=== PATIENT | female | born 2000 | race Caucasian/White ===

== ENCOUNTER 2025-06-03 12:07 | Emergency (ER) | payer OTHER ==
--- NOTE | 2025-06-03 12:13 | ERPHSYRPT ---
- History of Present Illness Time Seen by Provider: 06/03/25 12:12 Historian: patient, family Exam Limitations: no limitations Physician History: This is a 24-year-old white female patient arrives by private vehicle and who receives her primary care by nurse practitioner marco and Dr. Vick out of [facility]. Patient was seen yesterday and diagnosed with constipation. However, the patient is concerned because at times the pain is very severe. 3 days ago she had nausea and vomiting symptoms. Patient has never had prior abdominal surgeries. Patient denies chest pain. Patient denies shortness of breath. Patient does have a history of depression and anxiety. Timing/Duration: day(s) (Worst symptoms in the last few days), worse, other (Pain intermittently for a month) Activities at Onset: none Quality: aching Abdominal Pain Onset Location: RLQ, LLQ, suprapubic Pain Radiation: no radiation Severity of Pain-Max: mild (To moderate) Severity of Pain-Current: mild Modifying Factors: Improves With: nothing Associated Symptoms: nausea, vomiting, No chest pain, No shortness of breath Previous symptoms: same symptoms as today, recently seen, recently treated Allergies/Adverse Reactions: No Known Drug Allergies Allergy (Unverified 06/03/25 12:12) Home Medications: Cholecalciferol (Vitamin D3) [Vitamin D3] 25 mcg PO DAILY 06/03/25 [History] Cyanocobalamin (Vitamin B-12) [Vitamin B12] 1,000 mcg PO DAILY 06/03/25 [History] Escitalopram Oxalate [Lexapro] 10 mg PO DAILY 06/03/25 [History] Noreth A-Et Estra/Fe Fumarate [Lo Loestrin Fe 1-10 Tablet] 1 tablet PO DAILY 06/03/25 [History] Sucralfate 1 gm [Carafate 1 GM] 1 g PO ACHS 06/03/25 [History] Travel Risk - International Travel Have you traveled outside of the country in past 3 weeks: No - Emerging Infectious Disease Are you exhibiting symptoms associated with any current EIDs: No - Review of Systems Constitutional: No Symptoms Eyes: No Symptoms Ears, Nose, & Throat: No Symptoms Respiratory: No Symptoms Cardiac: No Symptoms Abdominal/Gastrointestinal: No Symptoms, Abdominal Pain, Nausea, Vomiting, Constipation Genitourinary Symptoms: No Symptoms Musculoskeletal: No Symptoms Skin: No Symptoms Neurological: No Symptoms Psychological: No Symptoms Endocrine: No Symptoms Hematologic/Lymphatic: No Symptoms Immunological/Allergic: No Symptoms All Other Systems: Reviewed and Negative - Past Medical History Pertinent Past Medical History: Yes - Nursing Vital Signs Nursing Vital Signs: Initial Vital Signs Temperature 96.9 F 06/03/25 12:17 Pulse Rate 75 06/03/25 12:17 Respiratory Rate 18 06/03/25 12:17 Blood Pressure 114/77 06/03/25 12:17 O2 Sat by Pulse Oximetry 99 06/03/25 12:17 Pain Scale Pain Intensity 9 - Physical Exam General Appearance: no apparent distress, alert, anxiety Eye Exam: PERRL/EOMI, eyes nml inspection Ears, Nose, Throat Exam: normal ENT inspection, moist mucous membranes Neck Exam: normal inspection, non-tender, supple, full range of motion Respiratory Exam: normal breath sounds, lungs clear, airway intact, No chest tenderness, No respiratory distress Cardiovascular Exam: regular rate/rhythm, normal heart sounds, normal peripheral pulses Gastrointestinal/Abdomen Exam: soft, normal bowel sounds, tenderness (To palpation bilateral lower quadrants and suprapubic region), guarding (To palpation bilateral lower quadrants and suprapubic region), No rebound Pelvic Exam: not done Rectal Exam: not done Back Exam: normal inspection, normal range of motion, No CVA tenderness, No vertebral tenderness Extremity Exam: normal inspection, normal range of motion, pelvis stable Neurologic Exam: alert, oriented x 3, cooperative, pickle maker II-XII nml as tested, normal mood/affect, nml cerebellar function, nml station & gait, sensation nml Skin Exam: normal color, warm, dry Lymphatic Exam: No adenopathy SpO2 Interpretation: normal O2 Delivery: Room Air - Course Nursing assessment & vital signs reviewed: Yes Ordered Tests: Active Orders 24 hr Category Date Time Status IV Insertion STAT Care 06/03/25 12:31 Active ABDOMEN AND PELVIS W/0 CONTRAS [CT] Stat Exams 06/03/25 12:33 Completed AMYLASE Stat Lab 06/03/25 12:49 Completed CBC W DIFF Stat Lab 06/03/25 12:49 Completed CMP Stat Lab 06/03/25 12:49 Completed CULTURE,URINE Stat Lab 06/03/25 12:51 Received HCG QUALITATIVE, SERUM Stat Lab 06/03/25 12:49 Completed LIPASE Stat Lab 06/03/25 12:49 Completed UA W/RFX UR CULTURE Stat Lab 06/03/25 12:51 Completed Medication Summary Discontinued Medications Generic Name Dose Route Start Last Admin Trade Name Maggie PRN Reason Stop Dose Admin Acetaminophen 650 mg 06/03/25 14:26 06/03/25 14:34 Acetaminophen 325 Mg Tablet PO 06/03/25 14:27 650 mg STAT ONE Administration Acetaminophen Confirm 06/03/25 14:33 Acetaminophen 325 Mg Tablet Administered 06/03/25 14:34 Dose 650 mg .ROUTE .STK-MED ONE Cephalexin HCl 500 mg 06/03/25 15:03 06/03/25 15:12 Cephalexin Mh500 Mg Capsule PO 06/03/25 15:04 500 mg STAT ONE Administration Cephalexin HCl Confirm 06/03/25 15:11 Cephalexin Mh500 Mg Capsule Administered 06/03/25 15:12 Dose 500 mg .ROUTE .STK-MED ONE Lab/Rad Data: Laboratory Result Diagrams 06/03/25 12:49 06/03/25 12:49 Laboratory Results 06/03/25 06/03/25 06/03/25 Range/Units 12:51 12:49 12:49 WBC (3.98-10.04) x10^3/uL RBC (3.93-5.22) x10^6/uL Hgb (11.2-15.7) g/dL Hct (34.1-44.9) % MCV (79.4-94.8) fL MCH (25.6-32.2) pg MCHC (32.2-35.5) g/dL RDW (11.7-14.4) % Plt Count (182-369) x10^3/uL MPV (9.4-12.3) fL Gran % (34.0-71.1) % Immature Gran % (Auto) (0.001-0.429) % Nucleat RBC Rel Count (0.00-0.2) % Eos # (Auto) (0.04-0.36) x10^3/uL Immature Gran # (Auto) (0.001-0.031) x10^3u/L Absolute Lymphs (auto) (1.18-3.74) x10^3/uL Absolute Monos (auto) (0.24-0.86) x10^3/uL Absolute Nucleated RBC (0.00-0.012) x10^3u/L Lymphocytes % (19.3-51.7) % Monocytes % (4.7-12.5) % Eosinophils % (0.7-5.8) % Basophils % (0.1-1.2) % Absolute Granulocytes (1.56-6.13) x10^3/uL Basophils # (0.01-0.08) x10^3/uL Sodium 140 (135-145) mmol/L Potassium 4.2 (3.5-5.1) mmol/L Chloride 106 (98-107) mmol/L Carbon Dioxide 26 (22-30) mmol/L Anion Gap 12.4 (5-15) MEQ/L BUN 11 (7-17) mg/dL Creatinine 0.80 (0.52-1.04) mg/dL Estimated GFR 106.8 ML/MIN Glucose 92 (74-106) mg/dL Calcium 9.3 (8.4-10.2) mg/dL Total Bilirubin 0.30 (0.2-1.3) mg/dL AST 27 (14-36) U/L ALT 15 (0-35) U/L Alkaline Phosphatase 90 (38-126) U/L Serum Total Protein 8.2 (6.3-8.2) g/dL Albumin 4.5 (3.5-5.0) g/dL Amylase 61 (30-110) U/L Lipase 92 (23-300) U/L Serum HCG, Qual NEGATIVE (NEGATIVE) Urine Color Yellow (Yellow) Urine Appearance Clear (Clear) Urine pH 7.5 (4.6-8.0) Ur Specific [place] 1.015 (1.005-1.030) Urine Protein Negative (Negative) Urine Glucose (UA) Negative (Negative) mg/dL Urine Ketones Negative (Negative) Urine Blood Large A (Negative) Urine Nitrite Negative (Negative) Urine Bilirubin Negative (Negative) Urine Urobilinogen 0.2 (0.2) mg/dL Ur Leukocyte Esterase Trace A (Negative) U Hyaline Cast (Auto) NONE SEEN (0-2) /LPF Urine Microscopic RBC 21-50 A (0-5) /HPF Urine Microscopic WBC 6-10 A (0-5) /HPF Ur Epithelial Cells Rare (None Seen) /HPF Urine Bacteria None Seen (None Seen) /HPF Urine Culture Reflexed YES (NO) 06/03/25 Range/Units 12:49 WBC 7.7 (3.98-10.04) x10^3/uL RBC 4.65 (3.93-5.22) x10^6/uL Hgb 12.9 (11.2-15.7) g/dL Hct 40.3 (34.1-44.9) % MCV 86.7 (79.4-94.8) fL MCH 27.7 (25.6-32.2) pg MCHC 32.0 L (32.2-35.5) g/dL RDW 12.4 (11.7-14.4) % Plt Count 324 (182-369) x10^3/uL MPV 11.9 (9.4-12.3) fL Gran % 55.9 (34.0-71.1) % Immature Gran % (Auto) 0.4 (0.001-0.429) % Nucleat RBC Rel Count 0.0 (0.00-0.2) % Eos # (Auto) 0.49 H (0.04-0.36) x10^3/uL Immature Gran # (Auto) 0.03 (0.001-0.031) x10^3u/L Absolute Lymphs (auto) 2.23 (1.18-3.74) x10^3/uL Absolute Monos (auto) 0.59 (0.24-0.86) x10^3/uL Absolute Nucleated RBC 0.00 (0.00-0.012) x10^3u/L Lymphocytes % 29.1 (19.3-51.7) % Monocytes % 7.7 (4.7-12.5) % Eosinophils % 6.4 H (0.7-5.8) % Basophils % 0.5 (0.1-1.2) % Absolute Granulocytes 4.28 (1.56-6.13) x10^3/uL Basophils # 0.04 (0.01-0.08) x10^3/uL Sodium (135-145) mmol/L Potassium (3.5-5.1) mmol/L Chloride (98-107) mmol/L Carbon Dioxide (22-30) mmol/L Anion Gap (5-15) MEQ/L BUN (7-17) mg/dL Creatinine (0.52-1.04) mg/dL Estimated GFR ML/MIN Glucose (74-106) mg/dL Calcium (8.4-10.2) mg/dL Total Bilirubin (0.2-1.3) mg/dL AST (14-36) U/L ALT (0-35) U/L Alkaline Phosphatase (38-126) U/L Serum Total Protein (6.3-8.2) g/dL Albumin (3.5-5.0) g/dL Amylase (30-110) U/L Lipase (23-300) U/L Serum HCG, Qual (NEGATIVE) Urine Color (Yellow) Urine Appearance (Clear) Urine pH (4.6-8.0) Ur Specific [place] (1.005-1.030) Urine Protein (Negative) Urine Glucose (UA) (Negative) mg/dL Urine Ketones (Negative) Urine Blood (Negative) Urine Nitrite (Negative) Urine Bilirubin (Negative) Urine Urobilinogen (0.2) mg/dL Ur Leukocyte Esterase (Negative) U Hyaline Cast (Auto) (0-2) /LPF Urine Microscopic RBC (0-5) /HPF Urine Microscopic WBC (0-5) /HPF Ur Epithelial Cells (None Seen) /HPF Urine Bacteria (None Seen) /HPF Urine Culture Reflexed (NO) - Progress Progress: improved, pain not gone completely, re-examined Progress Note: 06/03/25 13:07 My medical decision making and the assignment of moderate complexity of this patient's medical issue today is based on review of the patient's past medical history, review the patient's medication list, reviewed patient drug allergy list, history present illness and physical findings on examination. The workup in this patient includes placement of intravenous line, urinalysis, CBC, CMP, amylase, lipase, test, CT scan of the abdomen pelvis without contrast. Differential diagnosis includes but is not limited to acute appendicitis, urinary tract infection, dehydration, pancreatitis, electrolyte abnormalities, bowel obstruction, ovarian pathology 06/03/25 15:04 I interpreted the patient's laboratory data results. Based on laboratory data results, the patient has a urinary tract infection. There are no other acute or emergent medical issues based on the laboratory data results. 06/03/25 15:[address] scan of the abdomen pelvis without contrast was interpreted by the radiologist and I reviewed the impression. 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 There is normal appendix. No free air or free fluid. There is L5 spondylosis with grade [address] scan of the abdomen pelvis without contrast exam is negative Counseled pt/family regarding: lab results, diagnosis, rad results Medical Desision Making - Independent Historian Additional History obtained from: Relative/friend - Diagnostic Testing Diagnostic test were ordered, analyzed, and reviewed by me: Yes Radiological Interpretation: Reviewed by me, Teleradiologist Report - Risk of complications Low Risk: Low risk of morbidity from additional dx testing or treatment The pt has a mod risk of morbidity or mortality based on: Need for prescription drug management - Departure Departure Disposition: Home Clinical Impression: Abdominal pain, UTI (urinary tract infection) Condition: Stable Critical Care Time: No Referrals: DOCTOR,NO FAMILY [Primary Care Provider, UNKNOWN] - Follow up/PCP as directed Additional Instructions: Drink plenty of fluids. Use Tylenol and ibuprofen for pain control. Call your primary care provider today, 06/03/2025, to make arrangements for follow-up appointment for further evaluation and management. Prescriptions: Cephalexin Mh 500 mg [Keflex 500 mg] 500 mg PO TID #21 cap
[2025-06-03 12:33] VITALS: RESP 18; TEMP 96.9
[2025-06-03 12:51] LABS: BASOPHIL % 0.5 % (0.1-1.2); Basophil (Absolute #) 0.04 x10^3/uL (0.01-0.08); Eosinophil (Absolute #) 0.49 x10^3/uL (0.04-0.36); Hematocrit 40.3 % (34.1-44.9); Hemoglobin 12.9 g/dL (11.2-15.7); IMMATURE GRAN # 0.03 x10^3u/L (0.001-0.031); IMMATURE GRAN % 0.4 % (0.001-0.429); Lymphocyte (Absolute #) 2.23 x10^3/uL (1.18-3.74); Mean Corpuscular Hemoglobin 27.7 pg (25.6-32.2); Mean Corpuscular Hgb Concent. 32.0 g/dL (32.2-35.5); Monocyte (Absolute #) 0.59 x10^3/uL (0.24-0.86); NUCLEATED RBC # 0.00 x10^3u/L (0.00-0.012); NUCLEATED RBC % 0.0 % (0.00-0.2); Platelet Count 324 x10^3/uL (182-369); Red Blood Count 4.65 x10^6/uL (3.93-5.22); White Blood Count 7.7 x10^3/uL (3.98-10.04)
[2025-06-03 13:02] LABS: HCG SERUM TEST NEGATIVE (NEGATIVE)
[2025-06-03 13:04] LABS: Calcium 9.3 mg/dL (8.4-10.2); Carbon Dioxide 26.0 mmol/L (22-30); Creatinine 1 0.8 mg/dL (0.52-1.04); EST GLOMERULAR FILTRATION RATE 106.8 ML/MIN; Glucose 92.0 mg/dL (74-106); Potassium 4.2 mmol/L (3.5-5.1); SGOT/AST 27.0 U/L (14-36); SGPT/ALT 15.0 U/L (0-35); Total Protein 8.2 g/dL (6.3-8.2)
[2025-06-03 13:09] LABS: Glucose, Urine Negative (Negative); Protein,Urine Dip Negative (Negative); RBC 21-50 /HPF (0-5)
[2025-06-03] MEDS ORDERED: TYLENOL 325 MG ONE (14:33)
[2025-06-03] MEDS: TYLENOL 325 MG PO ONE (14:34)
[2025-06-03] MEDS ORDERED: KEFLEX 500 MG ONE (15:11)
[2025-06-03] MEDS: KEFLEX 500 MG PO ONE (15:12)
--- NOTE | 2025-06-03 15:12 | XRAY ---
Indication: Suprapubic abdominal pain. Multiple contiguous axial images obtained through the abdomen and pelvis without contrast. Comparison: None Lung bases clear. Heart not enlarged. Noncontrasted stomach and bowel loops appear nonobstructed. 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 Normal appendix. No free fluid/air. Remaining liver, gallbladder, pancreas, spleen, adrenal glands, kidneys, ureters, bladder, uterus, and aorta are unremarkable for noncontrast exam. Osseous structures intact with incidental bilateral L5 spondylolysis and 3-4 mm listhesis. Impression: 1. 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 2. L5 spondylolysis with grade [address] abdomen/pelvis without contrast exam is negative.
[2025-06-03 16:03] VITALS: BP 104/72; PULSE 69; O2SAT 100
== END 2025-06-03 16:08 | disposition home or self-care (01) ==
LOC: ED 12:07
DX: N39.0 Urinary tract infection, site not specified (principal); R10.9 Unspecified abdominal pain; Z79.899 Other long term (current) drug therapy

== ENCOUNTER 2025-06-26 00:22 | Emergency (ER) | payer OTHER ==
[2025-06-26 00:34] VITALS: TEMP 98.5
--- NOTE | 2025-06-26 00:57 | ERPHSYRPT ---
- History of Present Illness Time Seen by Provider: 06/26/25 00:53 Historian: patient Exam Limitations: no limitations Patient Subjective Stated Complaint: abd pain/flank pain Triage Nursing Assessment: pt brought back in wheelchair. Pt is tearful and c/o abd pain and flank pain. Pt abd is soft with hypoactive bs x4 quad, tender on palpation. Pt c/o abd pain all day but it got much worse around 9:30 pm tonight. Pt's LBM was today. Pt has some nausea but denies any vomiting. Physician History: 24-year-old female history of a GI ulcer depression presents to our ED for evaluation of generalized abdominal pain into her back. Pain has been ongoing throughout the day however significantly worse at 9:30 PM. No trauma no fever. Mild nausea no vomiting. Patient is otherwise healthy. She voices no other complaints or concerns at this time. Portions of this note were created with voice recognition technology. There may be grammatical, spelling, punctuation or sound alike errors Timing/Duration: today Activities at Onset: none Quality: aching Abdominal Pain Onset Location: generalized abdomen Pain Radiation: no radiation Severity of Pain-Max: moderate Severity of Pain-Current: mild Modifying Factors: Improves With: palpation Associated Symptoms: nausea Previous symptoms: no prior history Allergies/Adverse Reactions: No Known Drug Allergies Allergy (Unverified 06/26/25 00:33) Home Medications: Cholecalciferol (Vitamin D3) [Vitamin D3] 25 mcg PO DAILY 06/03/25 [History] Cyanocobalamin (Vitamin B-12) [Vitamin B12] 1,000 mcg PO DAILY 06/03/25 [History] Escitalopram Oxalate [Lexapro] 10 mg PO DAILY 06/03/25 [History] Noreth A-Et Estra/Fe Fumarate [Lo Loestrin Fe 1-10 Tablet] 1 tablet PO DAILY 06/03/25 [History] Hx Tetanus, Diphtheria Vaccination/Date Given: Yes Hx Influenza Vaccination/Date Given: No Hx Pneumococcal Vaccination/Date Given: No Travel Risk - International Travel Have you traveled outside of the country in past 3 weeks: No - Emerging Infectious Disease Are you exhibiting symptoms associated with any current EIDs: Yes Symptoms: Abdominal Pain - Review of Systems All Other Systems: Reviewed and Negative - Past Medical History Pertinent Past Medical History: Yes Musculoskeletal History: Fractures GI Medical History: Ulcer Psycho-Social History: Depression Other Medical History: fx leg, white spots on brain - Past Surgical History Past Surgical History: Yes Musculoskeletal: Orthopedic Surgery Other Surgical History: left femur, wisdom - Female History Hx Last Menstrual Period: 06/24/25 Hx Now: No - Social History Smoking Status: Never smoker Exposure to second hand smoke: No Drug Use: none - Social Determinants of Health Will the patient participate in the screening: Yes Do you worry about a steady place to live?: No Do you have any problems with any of the following?: No known problems In the past 12 months,have you had to go without utilities?: No Transportation Issues: No Has anyone in your support network made you feel unsafe?: No Have you or anyone in your house had to go w/o enough food: No - Nursing Vital Signs Nursing Vital Signs: Initial Vital Signs Temperature 98.5 F 06/26/25 00:27 Pulse Rate 87 06/26/25 00:27 Respiratory Rate 18 06/26/25 00:27 Blood Pressure 139/92 06/26/25 00:27 O2 Sat by Pulse Oximetry 98 06/26/25 00:27 Pain Scale Pain Intensity 2 - Physical Exam General Appearance: no apparent distress, alert Eye Exam: PERRL/EOMI, eyes nml inspection Ears, Nose, Throat Exam: normal ENT inspection, pharynx normal, moist mucous membranes Neck Exam: normal inspection, full range of motion Respiratory Exam: normal breath sounds, lungs clear, No respiratory distress Cardiovascular Exam: regular rate/rhythm, normal heart sounds Gastrointestinal/Abdomen Exam: soft, tenderness (Generalized abdominal pain), No mass Back Exam: normal inspection, normal range of motion, No CVA tenderness, No vertebral tenderness Extremity Exam: normal inspection Neurologic Exam: alert, oriented x 3, cooperative, normal mood/affect, sensation nml, No motor deficits Skin Exam: normal color, warm, dry Lymphatic Exam: No adenopathy SpO2 Interpretation: normal SpO2: 98 O2 Delivery: Room Air - Course Nursing assessment & vital signs reviewed: Yes - CT Exams Abdomen/Pelvis CT Interpretation: Tele-radiologist Report (Significant findings observed on today's CT abdomen and pelvis.) Ordered Tests: Active Orders 24 hr Category Date Time Status IV Insertion STAT Care 06/26/25 00:57 Active ABDOMEN AND PELVIS W CONTRAST [CT] Stat Exams 06/26/25 00:58 Completed CBC W DIFF Stat Lab 06/26/25 01:00 Completed CMP Stat Lab 06/26/25 01:00 Completed CULTURE,URINE Stat Lab 06/26/25 01:28 Received HCG QUALITATIVE, URINE Stat Lab 06/26/25 01:38 Completed LIPASE Stat Lab 06/26/25 01:00 Completed TROPONIN Q4H Lab 06/26/25 01:00 Completed TROPONIN Q4H Lab 06/26/25 05:00 Ordered TROPONIN Q4H Lab 06/26/25 09:00 Ordered UA W/RFX UR CULTURE Stat Lab 06/26/25 01:28 Completed Medication Summary Generic Name Dose Route Start Last Admin Trade Name Freq PRN Reason Stop Dose Admin Sodium Chloride 1,000 mls @ 100 mls/hr 06/26/25 01:00 06/26/25 01:15 Sodium Chloride 0.9% 1000 Ml IV 07/26/25 00:59 100 mls/hr .Q10H CHAPO Administration Discontinued Medications Generic Name Dose Route Start Last Admin Trade Name Freq PRN Reason Stop Dose Admin Ceftriaxone Sodium 1 gm in 100 mls @ 200 mls/hr 06/26/25 01:59 06/26/25 02:07 Rocephin 1 Gm / 100 Ml Nacl IV 06/26/25 02:28 200 mls/hr STAT ONE 200 mls/hr Administration Ceftriaxone Sodium Confirm 06/26/25 02:02 Rocephin 1 Gm / 100 Ml Nacl Administered 06/26/25 02:03 Dose 1 gm in 100 mls @ ud IV .STK-MED ONE Ketorolac Tromethamine 30 mg 06/26/25 00:57 06/26/25 01:16 Ketorolac Tromethamine 30 Mg/Ml Inj IV 06/26/25 00:58 30 mg STAT ONE Administration Ketorolac Tromethamine Confirm 06/26/25 01:09 Ketorolac Tromethamine 30 Mg/Ml Inj Administered 06/26/25 01:10 Dose 30 mg .ROUTE .STK-MED ONE Ondansetron HCl 4 mg 06/26/25 00:57 06/26/25 01:15 Ondansetron Hcl 4 Mg/2 Ml Vial IV 06/26/25 00:58 4 mg STAT ONE Administration Ondansetron HCl Confirm 06/26/25 01:09 Ondansetron Hcl 4 Mg/2 Ml Vial Administered 06/26/25 01:10 Dose 4 mg .ROUTE .STK-MED ONE Lab/Rad Data: Laboratory Result Diagrams 06/26/25 01:00 06/26/25 01:00 Laboratory Results 06/26/25 06/26/25 06/26/25 Range/Units 01:38 01:28 01:00 WBC (3.98-10.04) x10^3/uL RBC (3.93-5.22) x10^6/uL Hgb (11.2-15.7) g/dL Hct (34.1-44.9) % MCV (79.4-94.8) fL MCH (25.6-32.2) pg MCHC (32.2-35.5) g/dL RDW (11.7-14.4) % Plt Count (182-369) x10^3/uL MPV (9.4-12.3) fL Gran % (34.0-71.1) % Immature Gran % (Auto) (0.001-0.429) % Nucleat RBC Rel Count (0.00-0.2) % Eos # (Auto) (0.04-0.36) x10^3/uL Immature Gran # (Auto) (0.001-0.031) x10^3u/L Absolute Lymphs (auto) (1.18-3.74) x10^3/uL Absolute Monos (auto) (0.24-0.86) x10^3/uL Absolute Nucleated RBC (0.00-0.012) x10^3u/L Lymphocytes % (19.3-51.7) % Monocytes % (4.7-12.5) % Eosinophils % (0.7-5.8) % Basophils % (0.1-1.2) % Absolute Granulocytes (1.56-6.13) x10^3/uL Basophils # (0.01-0.08) x10^3/uL Sodium (135-145) mmol/L Potassium (3.5-5.1) mmol/L Chloride (98-107) mmol/L Carbon Dioxide (22-30) mmol/L Anion Gap (5-15) MEQ/L BUN (7-17) mg/dL Creatinine (0.52-1.04) mg/dL Estimated GFR ML/MIN Glucose (74-106) mg/dL Calcium (8.4-10.2) mg/dL Total Bilirubin (0.2-1.3) mg/dL AST (14-36) U/L ALT (0-35) U/L Alkaline Phosphatase (38-126) U/L Troponin I < 0.012 (0.000-0.033) ng/mL Serum Total Protein (6.3-8.2) g/dL Albumin (3.5-5.0) g/dL Lipase (23-300) U/L Urine Color Yellow (Yellow) Urine Appearance Cloudy A (Clear) Urine pH 8.0 (4.6-8.0) Ur Specific [place] 1.015 (1.005-1.030) Urine Protein 100 A (Negative) Urine Glucose (UA) Negative (Negative) mg/dL Urine Ketones Negative (Negative) Urine Blood Moderate A (Negative) Urine Nitrite Positive A (Negative) Urine Bilirubin Negative (Negative) Urine Urobilinogen 0.2 (0.2) mg/dL Ur Leukocyte Esterase Moderate A (Negative) U Hyaline Cast (Auto) NONE SEEN (0-2) /LPF Urine Microscopic RBC 21-50 A (0-5) /HPF Urine Microscopic WBC >100 A (0-5) /HPF Ur Epithelial Cells None Seen (None Seen) /HPF Urine Bacteria Many A (None Seen) /HPF Urine Culture Reflexed YES (NO) Urine HCG, Qual NEGATIVE (NEGATIVE) 06/26/25 06/26/25 Range/Units 01:00 01:00 WBC 8.1 (3.98-10.04) x10^3/uL RBC 4.48 (3.93-5.22) x10^6/uL Hgb 12.6 (11.2-15.7) g/dL Hct 38.7 (34.1-44.9) % MCV 86.4 (79.4-94.8) fL MCH 28.1 (25.6-32.2) pg MCHC 32.6 (32.2-35.5) g/dL RDW 12.3 (11.7-14.4) % Plt Count 301 (182-369) x10^3/uL MPV 11.6 (9.4-12.3) fL Gran % 65.1 (34.0-71.1) % Immature Gran % (Auto) 0.2 (0.001-0.429) % Nucleat RBC Rel Count 0.0 (0.00-0.2) % Eos # (Auto) 0.34 (0.04-0.36) x10^3/uL Immature Gran # (Auto) 0.02 (0.001-0.031) x10^3u/L Absolute Lymphs (auto) 1.53 (1.18-3.74) x10^3/uL Absolute Monos (auto) 0.90 H (0.24-0.86) x10^3/uL Absolute Nucleated RBC 0.00 (0.00-0.012) x10^3u/L Lymphocytes % 18.8 L (19.3-51.7) % Monocytes % 11.1 (4.7-12.5) % Eosinophils % 4.2 (0.7-5.8) % Basophils % 0.6 (0.1-1.2) % Absolute Granulocytes 5.30 (1.56-6.13) x10^3/uL Basophils # 0.05 (0.01-0.08) x10^3/uL Sodium 137 (135-145) mmol/L Potassium 4.0 (3.5-5.1) mmol/L Chloride 104 (98-107) mmol/L Carbon Dioxide 22 (22-30) mmol/L Anion Gap 14.8 (5-15) MEQ/L BUN 12 (7-17) mg/dL Creatinine 0.84 (0.52-1.04) mg/dL Estimated GFR 100.7 ML/MIN Glucose 96 (74-106) mg/dL Calcium 9.6 (8.4-10.2) mg/dL Total Bilirubin 0.10 L (0.2-1.3) mg/dL AST 21 (14-36) U/L ALT 14 (0-35) U/L Alkaline Phosphatase 88 (38-126) U/L Troponin I (0.000-0.033) ng/mL Serum Total Protein 8.5 H (6.3-8.2) g/dL Albumin 4.6 (3.5-5.0) g/dL Lipase 101 (23-300) U/L Urine Color (Yellow) Urine Appearance (Clear) Urine pH (4.6-8.0) Ur Specific [place] (1.005-1.030) Urine Protein (Negative) Urine Glucose (UA) (Negative) mg/dL Urine Ketones (Negative) Urine Blood (Negative) Urine Nitrite (Negative) Urine Bilirubin (Negative) Urine Urobilinogen (0.2) mg/dL Ur Leukocyte Esterase (Negative) U Hyaline Cast (Auto) (0-2) /LPF Urine Microscopic RBC (0-5) /HPF Urine Microscopic WBC (0-5) /HPF Ur Epithelial Cells (None Seen) /HPF Urine Bacteria (None Seen) /HPF Urine Culture Reflexed (NO) Urine HCG, Qual (NEGATIVE) - Progress Progress: improved Progress Note: Patient is a 24-year-old female presents to our ED for evaluation of abdominal pain. Physical exam reveals abdominal tenderness mostly at the lower quadrants. No rebound. Laboratory workup essentially nonremarkable. UA significant for a urinary tract infection. Patient received a gram of Rocephin in our ED. CT abdomen pelvis negative for acute intra-abdominal pathology. Patient received Toradol for pain control. Patient reassessed. Pain essentially resolved. Patient states she was ready for discharge. [id number] oral analgesics as needed for pain. A prescription for Keflex forwarded to patient's pharmacy. Patient agrees to follow-up with her primary care doctor within 48 hours for reevaluation. Significant other at bedside. They voiced no other complaints or concerns at this time. Portions of this note were created with voice recognition technology. There may be grammatical, spelling, punctuation or sound alike errors History obtained from patient and significant other at bedside. Differential diagnosis includes urinary tract infection, appendicitis, colitis, trauma Complexity of problems addressed is moderate acute complicated. No critical care time. Complexity of data reviewed and analyzed is moderate. Test ordered test reviewed results analyzed and correlated clinically with history and physical exam. Risk of complication and or risk of morbidity/mortality of patient management is low. Vital stable. Time spent to discharge patient is approximately 15 minutes. Plan of care established for shared decision making. No social determinants of health present to impede follow-up. Portions of this note were created with voice recognition technology. There may be grammatical, spelling, punctuation or sound alike errors 06/26/25 03:12 Counseled pt/family regarding: lab results, diagnosis, need for follow-up, rad results - Departure Departure Disposition: Home Clinical Impression: Urinary tract infection, Abdominal pain Condition: Stable Critical Care Time: No Referrals: KENJI DUNLAP MD [ACTIVE STAFF, [facility]] - Follow up/PCP as directed Additional Instructions: Discharge/Care Plan JEANINE BUSH was seen on 06/26/25 in the Emergency Room. The patient was counseled regarding Diagnosis,Lab results, Imaging studies, need for follow up and when to return to the Emergency Room. Prescriptions given: Discharge Note I have spoken with the patient and/or caregivers. I have explained the patient's condition, diagnosis and treatment plan based on the information available to me at this time. I have answered the patient's and/or caregiver's questions and addressed any concerns. The patient and/or caregivers have as good understanding of the patient's diagnosis, condition and treatment plan as can be expected at this point. The vital signs have been stable. The patient's condition is stable and appropriate for discharge from the emergency department. The patient will pursue further outpatient evaluation with the primary care physician or other designated or consulting physician as outlined in the discharge instructions. The patient and/or caregivers are agreeable to this plan of care and follow-up instructions have been explained in detail. The patient and/or caregivers have received these instruction. The patient/and or caregivers are aware that any significant change in condition or worsening of symptoms should prompt an immediate return to this or the closest emergency department or call 911. Prescriptions: Cephalexin Mh 500 mg [Keflex 500 mg] 500 mg PO TID #21 cap
[2025-06-26 01:09] LABS: BASOPHIL % 0.6 % (0.1-1.2); Basophil (Absolute #) 0.05 x10^3/uL (0.01-0.08); Eosinophil (Absolute #) 0.34 x10^3/uL (0.04-0.36); Hematocrit 38.7 % (34.1-44.9); Hemoglobin 12.6 g/dL (11.2-15.7); IMMATURE GRAN # 0.02 x10^3u/L (0.001-0.031); IMMATURE GRAN % 0.2 % (0.001-0.429); Lymphocyte (Absolute #) 1.53 x10^3/uL (1.18-3.74); Mean Corpuscular Hemoglobin 28.1 pg (25.6-32.2); Mean Corpuscular Hgb Concent. 32.6 g/dL (32.2-35.5); Monocyte (Absolute #) 0.90 x10^3/uL (0.24-0.86); NUCLEATED RBC # 0.00 x10^3u/L (0.00-0.012); NUCLEATED RBC % 0.0 % (0.00-0.2); Platelet Count 301 x10^3/uL (182-369); Red Blood Count 4.48 x10^6/uL (3.93-5.22); White Blood Count 8.1 x10^3/uL (3.98-10.04)
[2025-06-26] MEDS ORDERED: TORAdol 30 mg Injection ONE (01:09)
[2025-06-26] MEDS ORDERED: Zofran 4 MG/2 ML VIAL ONE (01:09)
[2025-06-26] MEDS: Zofran 4 MG/2 ML VIAL IV ONE (01:15)
[2025-06-26] MEDS: TORAdol 30 mg Injection IV ONE (01:16)
[2025-06-26 01:25] LABS: Calcium 9.6 mg/dL (8.4-10.2); Carbon Dioxide 22.0 mmol/L (22-30); Creatinine 1 0.84 mg/dL (0.52-1.04); EST GLOMERULAR FILTRATION RATE 100.7 ML/MIN; Glucose 96.0 mg/dL (74-106); Potassium 4.0 mmol/L (3.5-5.1); SGOT/AST 21.0 U/L (14-36); SGPT/ALT 14.0 U/L (0-35); Total Protein 8.5 g/dL (6.3-8.2)
[2025-06-26 01:44] LABS: HCG URINE TEST NEGATIVE (NEGATIVE)
[2025-06-26 01:50] LABS: Glucose, Urine Negative (Negative); Protein,Urine Dip 100 (Negative); RBC 21-50 /HPF (0-5); WBC >100 /HPF (0-5)
[2025-06-26] MEDS ORDERED: ROCEPHIN 1 GM / 100 ML NaCl 1 GM/100 ML IVPB IV ONE (02:02)
[2025-06-26] MEDS: ROCEPHIN 1 GM / 100 ML NaCl 1 GM/100 ML IVPB IV ONE (02:07)
[2025-06-26 02:38] VITALS: RESP 16
--- NOTE | 2025-06-26 02:45 | XRAY ---
CLINICAL HISTORY: pain COMPARISON: None. TECHNIQUE: Contiguous axial images were obtained from the level of the diaphragm to the pubic symphysis with intravenous contrast. Coronal and sagittal reconstructions were also performed and indicated to increase the sensitivity for detecting clinically relevant pathology. If intravenous contrast material had not been administered, the likelihood of detecting abnormalities relevant to the patient's condition would have been substantially decreased. The CT scan was performed according to ALARA (as low as reasonably achievable) principles. FINDINGS: The visualized lung bases are clear. The liver is normal in size and attenuation. No focal liver lesions are seen. There is no intrahepatic or extrahepatic biliary ductal dilatation. Hepatic vasculature is patent. The gallbladder is present. The spleen shows a tiny hypodense lesion measuring 3 mm- likely benign. Pancreas, and adrenal glands are unremarkable. The kidneys are normal in size and attenuation. There is no hydronephrosis or perinephric fat stranding. No renal calculi or renal masses are identified. The ureters are normal in caliber, and no ureteral calculi are seen. The bladder is normal in contour. Pelvic viscera are unremarkable. No focal or diffuse bowel wall thickening or evidence of bowel obstruction is identified. There is no imaging evidence of appendicitis. Abdominal and pelvic vasculature is patent. No adenopathy or fluid collections are seen. No aggressive-appearing osseous lesions are identified. IMPRESSION: No significant abnormality detected. Electronically Signed by: Lamine Pandey MD. (06/26/2025 02:44:41 EDT)
[2025-06-26 03:03] VITALS: BP 93/61; PULSE 75
[2025-06-26 03:17] VITALS: O2SAT 98
== END 2025-06-26 03:20 | disposition home or self-care (01) ==
LOC: ED 00:22
DX: N39.0 Urinary tract infection, site not specified (principal); R10.84 Generalized abdominal pain; Z79.899 Other long term (current) drug therapy